=== PATIENT | male | born 1985 | race Caucasian/White ===

== ENCOUNTER 2023-05-06 19:42 | Emergency (ER) | payer MEDICAID, SELFPAY ==
[2023-05-06 19:43] VITALS: BP 147/87; PULSE 84; RESP 18; TEMP 36.7; O2SAT 100; BMI 34.9
--- NOTE | 2023-05-06 19:58 | EX.ED.DYSGE1 ---
HPI History of Present Illness Chief Complaint: Abscess Detail of Chief Complaint: Abscess Informant: patient Narrative Narrative: Patient presents to the emergency department complaint of an abscess over his gluteal cleft. Patient tells me he has a history of a pilonidal cyst that was incised and drained about 11 years ago. He has not had an issue with it since. He denies fevers or chills or sweats. He is not diabetic. PFSH PFSH Medical History no medical history Home Medications cephalexin 500 mg capsule 500 mg PO Q6 #40 CAPSULES 05/06/23 [Rx Last Taken Unknown] sulfamethoxazole 800 mg-trimethoprim 160 mg tablet 1 tab PO BID #20 TABLETS 05/06/23 [Rx Last Taken Unknown] Allergy/AdvReac Type Severity Reaction Status Date / Time acetaminophen [From Vicodin] Allergy Hives Verified 05/06/23 19:45 hydrocodone bitartrate Allergy Hives Verified 05/06/23 19:45 [From Vicodin] Surgical History no surgical history Social History Smoking Status: Current every day smoker tobacco type: cigarettes ROS ROS ED Review of Systems ROS Unobtainable: other Constitutional Constitutional ED: Reports lethargy; Denies chills, fever(s), sweats or weight loss Eyes Eyes: Denies blurry vision, change in vision or diplopia ENT ENT ED: Denies rhinorrhea or sore throat Cardiovascular Cardiovascular: Reports chest pain and racing heartbeat; Denies orthopnea Respiratory/Chest Respiratory/Chest: Reports dyspnea and dyspnea on exertion; Denies cough, orthopnea or sputum Gastrointestinal Gastrointestinal: Denies abdominal pain, diarrhea, nausea or vomiting Genitourinary Genitourinary ED: Denies dysuria, hematuria or urinary frequency Musculoskeletal Musculoskeletal: Denies arthralgias, back pain, myalgias or neck pain Integumentary Reports abscess; Denies Abrasions or rash Neurologic Neurologic: Denies headache(s) or weakness Psychiatric Psychiatric: Denies anxiety, depression or suicidal thoughts Endocrine Endocrinology: Denies polydipsia, polyphagia or polyuria Hematologic/Lymphatic Hematologic/Lymphatic: Denies easy bleeding, easy bruising or lymphadenopathy Allergic/Immunologic Allergic/Immunologic ED: Denies mouth swelling, tongue swelling or urticaria EXAM Physical Exam Const Vital Signs: 05/06/23 19:43 05/06/23 21:31 Temperature 98.1 F Temperature Source Temporal Pulse Rate 84 Respiratory Rate 18 16 Blood Pressure 147/87 H Blood Pressure Mean 107 Pulse Ox 100 Oxygen Delivery Method Room Air Positive well nourished and well developed General Appearance ED: well developed and NAD HEENT Reports TM's clear and moist mucous membranes normocephalic and atraumatic; Negative for trauma or tenderness Tympanic Membrane ED: Yes TM's clear Eyes PERRL and EOMs intact bilaterally General Eye ED: Negative for pale conjunctiva or scleral icterus Neck no lymphadenopathy, supple and no JVD General: Negative for tenderness Chest Wall inspection of chest normal and palpation of chest normal Chest: Negative for tenderness Resp normal respiratory effort and clear to auscultation bilaterally Effort and Inspection: Negative for respiratory distress or pain with movement Auscultation: Negative for rhonchi, wheezes or diminished lung sounds Cardio regular rate, regular rhythm, S1 normal heart sound, S2 normal heart sound and no murmurs Peripheral Pulses: pulses 2+ throughout GI normal to inspection, nondistended, normoactive bowel sounds, soft to palpation, non-tender, non-distended and no masses GI Narrative: Evaluation of his buttocks does reveal a abscess just right of the gluteal cleft towards the sacrum. Area is fluctuant and slightly erythematous. Tender to palpation. There is evidence of prior incision in this area. Back/Spine no CVA tenderness and no thoracic nor lumbar tenderness Extremity normal to inspection General Extremety ED: Negative for edema General Extremity: Negative for edema Neuro oriented x3, CN's II-XII intact bilaterally, no sensory deficits noted and gait normal Sensorium / Orientation: awake, alert, oriented to person, oriented to place and oriented to time Motor Exam: strength 5/5 throughout and strength abnormal Psych mental status grossly normal Skin no rashes or lesions noted and no wounds MDM MDM MDM Narrative Medical decision making narrative: Patient presents with suspected abscess of the gluteal cleft suspicious for pilonidal cyst. Patient was offered incision and drainage to which she accepted. Area sterilely draped and prepped. Anesthetized locally with 1% lidocaine total 3 cc. Using an 11 blade a 2 cm incision was made into what was thought to be most fluctuant indurated portion and only blood small amount was obtained. There is no purulent drainage. At this point I suspect this is more induration and cellulitic changes. We will treat with Keflex and Bactrim. Will refer to general surgery for follow-up. Advised return if worsening pain, fever, vomiting, or condition should worsen anyway. Discharge Plan Triage Chief Complaint: Abscess ED Provider: Smita Tipton Dx/Rx/DC Orders Clinical Impression: Chronic recurrent pilonidal cyst Instructions: ED Abscess Incision And Drainage, ED Cyst Pilonidal Infec Abx Only Prescriptions: New sulfamethoxazole-trimethoprim [sulfamethoxazole-trimethoprim] 800-160 mg tablet 1 tab PO BID Qty: 20 0RF cephalexin [cephalexin] 500 mg capsule 500 mg PO Q6 Qty: 40 0RF Primary Care Provider: Care Physician,No Primary Referrals: Marcos Chang MD [Med Staff - Active Staff] - 3-5 Days Care Physician,No Primary [Primary Care Provider] - Disposition Disposition: Home, Self Care Discharge Date/Time: 05/06/23 21:31
[2023-05-06] MEDS: Cephalexin 250 MG Capsule 500 MG PO (21:26)
[2023-05-06] MEDS: Smz/Tmp Ds Tablet 1 TABLET PO (21:27)
[2023-05-06 21:31] VITALS: RESP 16
== END 2023-05-06 21:31 | disposition home or self-care (01) ==
PROVIDERS: Emergency Provider Emergency Medicine; Visit Provider Emergency Medicine
DX: L05.91 Pilonidal cyst without abscess (principal); F17.210 Nicotine dependence, cigarettes, uncomplicated
CPT/HCPCS: 10080; 99283

== ENCOUNTER 2024-04-02 13:01 | Emergency (ER) | payer MEDICAID, SELFPAY ==
[2024-04-02 13:01] VITALS: BP 156/98; PULSE 100; RESP 14; TEMP 36.6; O2SAT 100; BMI 24.6
--- NOTE | 2024-04-02 13:12 | EX.ED.GUMALE ---
HPI History of Present Illness Chief Complaint: Male Pain/Injury Narrative Narrative: 38-year-old male presenting for testing for STDs. He states he just got out of [facility] yesterday. His girlfriend told him that she tested positive for gonorrhea last week. He still had sexual intercourse with her without protection and now is concerned he might have an STD. He does not have any symptoms. Patient states also that when he went to [facility]itentiary they did a body scan. He states he saw something on the body scan on the left side which looked like a white thing me he is concerned it was in his chest. He does not have any chest pain or shortness of breath. He is not coughing. He has no signs of illness. [facility] Medical History Chronic recurrent pilonidal cyst Home Medications ?Medication ?Instructions ?Recorded ?Last Taken ?Type doxycycline hyclate 100 mg capsule 100 mg PO DAILY #20 caps 04/02/24 Unknown Rx Allergy/AdvReac Type Severity Reaction Status Date / Time acetaminophen (From Vicodin) Allergy Hives Verified 04/02/24 13:02 hydrocodone bitartrate (From Allergy Hives Verified 04/02/24 13:02 Vicodin) Family History Father Cancer leukemia Diabetes Mother Diabetes Hypertension Grandmother Heart disease Surgical History S/P left inguinal hernia repair H/O pilonidal cyst Social History Smoking Status: Current every day smoker tobacco type: cigarettes alcohol intake: former EXAM Physical Exam Const Vital Signs: 04/02/24 13:01 Temperature 98 F Temperature Source Temporal Pulse Rate 100 Respiratory Rate 14 Blood Pressure 156/98 H Blood Pressure Mean 117 Pulse Ox 100 Oxygen Delivery Method Room Air Positive well nourished General Appearance ED: NAD; Negative for pallor HEENT Reports moist mucous membranes and dry mucous membranes Mouth ED: Yes dry mucous membranes Mouth: dry mucous membranes Eyes PERRL Resp normal respiratory effort and clear to auscultation bilaterally Auscultation: Negative for rales, rhonchi or wheezes Cardio regular rate and regular rhythm GI non-tender Extremity normal to inspection General Extremety ED: Yes edema and pulses abnormal General Extremity: edema and pulses abnormal Neuro oriented x3 and CN's II-XII intact bilaterally Sensorium / Orientation: alert Motor Exam: strength 5/5 throughout Psych mental status grossly normal Skin General Skin Exam: Negative for jaundice or pallor MDM MDM MDM Narrative Medical decision making narrative: Patient presenting with concern for STD. He states his girlfriend tested positive for gonorrhea and he had sex with her yesterday. He does not have any symptoms. He also wants a chest x-ray because he is concerned he has a foreign body in his chest. Urine STD testing was obtained. Patient wants to be empirically treated. He will sign up for MyChart and follow-up with results. Chest x-ray interpreted by myself shows no acute cardiopulmonary process. There is no evidence of a foreign body. Radiology interprets this and agrees. Patient is discharged in stable condition. Impression: 1. STD check 2. Concern for foreign body Radiography Diagnostic Testing: Clinical Impression(s) from Imaging Studies Chest X-Ray 04/02/24 13:36 IMPRESSION: No radiopaque foreign body demonstrated on this exam. Recommend correlating with prior, recent imaging. Electronically Signed: Ulises Barbour MD ([place]) at 13:54 EDT Reading Location ID and State: [facility] / [place] , Service support , Discharge Plan Triage Chief Complaint: Male Pain/Injury ED Provider: Franco Arana Dx/Rx/DC Orders Instructions: ED STI Male Treated Prescriptions: New doxycycline hyclate 100 mg capsule 100 mg PO DAILY Qty: 20 0RF Primary Care Provider: Care Physician,No Primary Referrals: Zaida Lowery MD [Med Staff - Seed Cleaner Operator] - 3-5 Days Care Physician,No Primary [Primary Care Provider] - Print Language: [place] Disposition Disposition: Home, Self Care
--- NOTE | 2024-04-02 13:36 | RAD_ITS ---
STUDY: X-RAY CHEST REASON FOR EXAM: Male, 38 years old. concern for foreign body. PT STATES HE HAD A SCAN YESTERDAY THAT SHOWED AN OBLONG OBJECT THAT LOOKED LIKE IT WAS FULL OF BALLS AT THE END OF HIS LUNG. TECHNIQUE: PA and lateral views of the chest. COMPARISON: None. FINDINGS: The lungs are clear and expanded. There is no demonstrated pleural abnormality. Normal size heart. Normal mediastinum and jenifer. Normal visualized pulmonary arteries. Normal visualized aortic arch and descending thoracic aorta. Normal visualized thoracic spine. Normal visualized ribs, clavicles, and shoulders. There is no demonstrated abnormality of the visualized soft tissue structures of the upper abdomen. RAD/Chest PA and Lateral IMPRESSION: No radiopaque foreign body demonstrated on this exam. Recommend correlating with prior, recent imaging. Electronically Signed: Ulises Barbour MD ([place]) at 13:54 EDT ,
[2024-04-02] MEDS: Ceftriaxone 500 MG Vial IM (13:42)
[2024-04-02] MEDS: Doxycycline 100 MG CAPSULE PO (13:45)
== END 2024-04-02 14:06 | disposition home or self-care (01) ==
PROVIDERS: Emergency Provider Student in an Organized Health Care Education/Training Program; Visit Provider Student in an Organized Health Care Education/Training Program
DX: Z11.3 Encounter for screening for infections with a predominantly sexual mode of transmission (principal); F17.200 Nicotine dependence, unspecified, uncomplicated
CPT/HCPCS: 71046; 87491; 87591; 96372; 99283